=== PATIENT | male | born 1975 | race Caucasian/White ===

== ENCOUNTER → 2017-01-02 | Outpatient (CLI) | payer OTHER ==
[2017-01-02 11:53] LABS: BASO # 0.1 x10^3/uL (0.0-0.2); BASO % 1 % (0-3); EOS % 1 % (0-3); HEMATOCRIT 36.8 % (39.0-53.0); HEMOGLOBIN 12.8 g/dL (13.0-17.5); LYMPH % 29 % (24-48); MEAN CORPUSCULAR HEMOGLOBIN 30 pg (25-35); MEAN CORPUSCULAR HGB CONC 35 g/dL (31-37); MEAN CORPUSCULAR VOLUME 88 fL (79-100); MONO % 11 % (0-9); NEUT % 58 % (31-73); PLATELET COUNT 245 x10^3/uL (140-400); RED BLOOD COUNT 4.21 x10^6/uL (4.30-5.70); RED CELL DISTRIBUTION WIDTH 13.4 % (11.5-14.5); WHITE BLOOD COUNT 10.3 x10^3/uL (4.0-11.0)
== END | disposition home or self-care (01) ==
LOC: LAB 11:36
PROVIDERS: ATTEND Podiatrist
DX: M10.071 Idiopathic gout, right ankle and foot (principal)
CPT/HCPCS: 36415; 84550; 85025; 85651

== ENCOUNTER 2017-01-03 23:42 | Emergency (ER) | payer OTHER ==
[~2017-01-03] VITALS: Ht 177.8 cm; Wt 93.0 kg
--- NOTE | 2017-01-04 00:02 | PHYS DOC ---
Adult General Chief Complaint Chief Complaint: LOWER EXT PAIN HPI HPI Patient is a 41 year old M who presents with right lower extremity swelling. Patient states he's had swelling over the right lower extremity for the past 4 days and his [id number]'s household chores Dr. Aldrich who is been treating him for potential gout. Patient states the swelling got worse today after being at a football game. Patient denies any injury or trauma to the right lower extremity. Patient states the skin feels tight however denies significant pain. Patient states this is happened in the past however was minimal and didn't last very long. Patient denies taking any medication on a routine basis other than the indomethacin and colchicine his grndto-lo-dya prescribed him. Patient denies any chest pain or shortness of breath. Patient denies any history of CHF. Patient denies any cardiac history. Patient denies any nausea/vomiting/ diarrhea. Review of Systems Review of Systems GEN: Denies fevers, chills, sweats HEENT: Denies blurred vision, sore throat CV: Denies chest pain RESP: Denies shortness of air, cough GI: Denies n/v/d NEURO: Denies confusion, dizziness MSK: Right lower extremity swelling Current Medications Current Medications Current Medications Medications (Trade) Dose Ordered Sig/Nini Start Time Stop Time Status Last Admin Dose Admin Fentanyl Citrate (Fentanyl 2ml Vial) 50 mcg 1X ONCE 01/04/17 00:45 01/04/17 00:46 DC 01/04/17 00:47 50 MCG Allergies Allergies Allergies Coded Allergies Type Severity Reaction Last Updated Verified Penicillins Allergy Severe Swelling 01/04/17 Yes Physical Exam Physical Exam GEN.: No apparent distress. Alert and oriented. HEENT: Head is normocephalic, atraumatic NECK: Supple. LUNGS: CTAB. HEART: RRR, S1, S2 present. Peripheral pulses intact ABDOMEN: Soft, nontender. Positive bowel sounds. EXTREMITIES: Without any cyanosis. +2 pitting edema to the right foot and ankle, capillary refill to the right toes less than 2 seconds, dorsal pedis pulse palpated to the right lower extremity, no tenderness palpation no calf tenderness NEUROLOGIC: Normal speech, normal tone PSYCHIATRIC: Normal affect, normal mood. SKIN: No ulcerations Current Patient Data Vital Signs Vital Signs Date Time Temp Pulse Resp B/P (MAP) Pulse Ox O2 Delivery O2 Flow Rate FiO2 01/04/17 00:47 20 98 Room Air 01/04/17 00:03 98.8 91 177/98 (124) 98.8 Lab Values Laboratory Tests Test 01/04/17 00:25 01/04/17 00:40 Uric Acid 6.7 mg/dL (3.5-7.2) White Blood Count 7.9 x10^3/uL (4.0-11.0) Red Blood Count 3.94 x10^6/uL (4.30-5.70) L Hemoglobin 12.1 g/dL (13.0-17.5) L Hematocrit 34.2 % (39.0-53.0) L Mean Corpuscular Volume 87 fL (79-100) Mean Corpuscular Hemoglobin 31 pg (25-35) Mean Corpuscular Hemoglobin Concent 35 g/dL (31-37) Red Cell Distribution Width 12.9 % (11.5-14.5) Platelet Count 276 x10^3/uL (140-400) Neutrophils (%) (Auto) 57 % (31-73) Lymphocytes (%) (Auto) 29 % (24-48) Monocytes (%) (Auto) 11 % (0-9) H Eosinophils (%) (Auto) 3 % (0-3) Basophils (%) (Auto) 1 % (0-3) Neutrophils # (Auto) 4.5 x10^3uL (1.8-7.7) Lymphocytes # (Auto) 2.3 x10^3/uL (1.0-4.8) Monocytes # (Auto) 0.9 x10^3/uL (0.0-1.1) Eosinophils # (Auto) 0.2 x10^3/uL (0.0-0.7) Basophils # (Auto) 0.0 x10^3/uL (0.0-0.2) Sodium Level 139 mmol/L (136-145) Potassium Level 3.9 mmol/L (3.5-5.1) Chloride Level 99 mmol/L (98-107) Carbon Dioxide Level 30 mmol/L (21-32) Anion Gap 10 (6-14) Blood Urea Nitrogen 19 mg/dL (8-26) Creatinine 1.0 mg/dL (0.7-1.3) Estimated GFR (Cockcroft-Gault) 83.2 BUN/Creatinine Ratio 19 (6-20) Glucose Level 153 mg/dL (70-99) H Calcium Level 9.3 mg/dL (8.5-10.1) Total Bilirubin 0.4 mg/dL (0.2-1.0) Aspartate Amino Transferase (AST) 33 U/L (15-37) Alanine Aminotransferase (ALT) 47 U/L (16-63) Alkaline Phosphatase 80 U/L (46-116) Total Protein 8.3 g/dL (6.4-8.2) H Albumin 3.0 g/dL (3.4-5.0) L Albumin/Globulin Ratio 0.6 (1.0-1.7) L Laboratory Tests 01/04/17 00:40 Laboratory Tests 01/04/17 00:40 EKG EKG [] Radiology/Procedures Radiology/Procedures Ultrasound right lower extremity: no DVT [] Course & Med Decision Making Course & Med Decision Making Pertinent Labs and Imaging studies reviewed. (See chart for details) ED course: Patient was seen and examined emergency room CBC, CMP, ultrasound right lower extremity were ordered 0154: Updated patient on ultrasound results and lab results and plan to discharge home with short-term follow-up with his PCP. MDM: After reviewing the chart, CC/HPI/PMH, physical exam, [lab results], [ radiological results], I do not believe the patient has emergent medical condition warranting further workup and/or admission at this time. The patient has unilateral right lower extremity swelling with no obvious trauma therefore recommended follow-up with his PCP in one to 2 days and return if symptoms increase. Additional verbal discharge instructions were provided to the patient and that if symptoms get worse or any new symptoms arise that are worrisome to the patient he is to return to the emergency room immediately [] Dragon Disclaimer Dragon Disclaimer This electronic medical record was generated, in whole or in part, using a voice recognition dictation system. Departure Departure Impression: Primary Impression: Right leg swelling Disposition: 01 HOME, SELF-CARE Condition: IMPROVED Referrals: LILY ALDRICH DPM (PCP) Patient Instructions: Peripheral Edema Additional Instructions: Please follow-up with your family physician in the next one to 2 days and return if symptoms increase SINDI TIM DO Jan 04, 2017 00:02
--- NOTE | 2017-01-04 00:44 | RAD ---
Right lower extremity venous Doppler dated 01/04/2017. No comparison available. CLINICAL INDICATION: Pain and swelling. FINDINGS: Grayscale, color-flow and spectral waveform analysis performed to include the deep venous system of the right lower extremity. Normal compressibility, phasicity and augmentation of flow throughout. No filling defects are seen. IMPRESSION: No evidence of right lower extremity deep vein thrombosis. Electronically signed by: Zhang Pérez MD (01/04/2017 12:40 AM) [id number]
[2017-01-04] MEDS ORDERED: fentaNYL PF VIAL 100 MCG/2 ML VIAL IV ONE (00:45)
[2017-01-04 00:57] LABS: BASO % 1 % (0-3); EOS % 3 % (0-3); HEMATOCRIT 34.2 % (39.0-53.0); HEMOGLOBIN 12.1 g/dL (13.0-17.5); LYMPH # 2.3 x10^3/uL (1.0-4.8); LYMPH % 29 % (24-48); MEAN CORPUSCULAR HEMOGLOBIN 31 pg (25-35); MEAN CORPUSCULAR HGB CONC 35 g/dL (31-37); MEAN CORPUSCULAR VOLUME 87 fL (79-100); MONO % 11 % (0-9); NEUT % 57 % (31-73); PLATELET COUNT 276 x10^3/uL (140-400); RED BLOOD COUNT 3.94 x10^6/uL (4.30-5.70); RED CELL DISTRIBUTION WIDTH 12.9 % (11.5-14.5); WHITE BLOOD COUNT 7.9 x10^3/uL (4.0-11.0)
[2017-01-04 01:11] LABS: CALCIUM 9.3 mg/dL (8.5-10.1); GFR 83.2; POTASSIUM 3.9 mmol/L (3.5-5.1)
[2017-01-04 01:17] LABS: ALBUMIN/GLOBULIN RATIO 0.6 (1.0-1.7); TOTAL BILIRUBIN 0.4 mg/dL (0.2-1.0); TOTAL PROTEIN 8.3 g/dL (6.4-8.2)
[2017-01-04 02:01] VITALS: BP 136/75
== END 2017-01-04 02:00 | disposition home or self-care (01) ==
LOC: ER 23:42
DX: M79.89 Other specified soft tissue disorders (principal); Z88.0 Allergy status to penicillin
CPT/HCPCS: 36415; 80053; 84550; 85025; 93971; 96374; 99285; J3010